=== PATIENT | male | born 1985 | race Caucasian/White ===

== ENCOUNTER 2020-02-24 18:17 | Emergency (ER) | payer OTHER ==
[~2020-02-24] VITALS: Ht 190.5 cm; Wt 111.1 kg
[2020-02-24 20:07] VITALS: BP 105/45
== END 2020-02-24 20:45 | disposition home or self-care (01) ==
LOC: ER 18:17
DX: F10.10 Alcohol abuse, uncomplicated (principal); R45.89 Other symptoms and signs involving emotional state; I10 Essential (primary) hypertension; Y90.8 Blood alcohol level of 240 mg/100 ml or more